=== PATIENT | male | born 1950 | race Caucasian/White ===

== ENCOUNTER 2018-09-13 09:35 | Outpatient (REF) | payer MEDICARE, SELFPAY | END 2018-09-13 09:55 | LOC: NCHCN 09:35 | PROVIDERS: PCP Family Medicine; Visit Provider Family Medicine | DX: I10 Essential (primary) hypertension (principal); Z11.59 Encounter for screening for other viral diseases; E11.9 Type 2 diabetes mellitus without complications ==

== ENCOUNTER 2018-09-13 09:47 | Outpatient (REF) | payer MEDICARE, SELFPAY ==
[2018-09-13 16:22] LABS: Anion Gap 9.2 mmol/L (3-11); BUN 20 mg/dL (7-18); CO2 30.8 mmol/L (21.0-32.0); CREATININE 0.74 mg/dL (0.70-1.30); Calcium 9.4 mg/dL (8.5-10.1); Chloride 100 mmol/L (98-107); Glucose 119 mg/dL (70-100); Potassium 4.4 mmol/L (3.5-5.1); Sodium 140 mmol/L (136-145)
[2018-09-13 16:26] LABS: COMMENT (LAB VIEW ONLY) 142.85 mg/dL; Microalb ug/mg Crea 6.4 ug/mg Cr
[2018-09-14 09:51] LABS: Hepatitis C Ab w Rflx HCV PCR Negative (NEGAT)
== END 2018-09-13 10:07 ==
LOC: NCHCN 09:47
PROVIDERS: PCP Family Medicine; Visit Provider Family Medicine
DX: E11.9 Type 2 diabetes mellitus without complications (principal)
CPT/HCPCS: 80048; 86803; 82043; 82570

== ENCOUNTER 2018-10-07 12:28 | Outpatient (REF) | payer MEDICARE, SELFPAY ==
--- NOTE | 2018-10-07 08:30 | SOFT_PTH ---
PATIENT: Jhon Che LOC: [facility] U#:[id number] AGE/SX: 68/M ROOM: RE10/07/[address]: Jake Schneider MD : [id number] BED: DIS: 10/07/2018 SPEC #: [id number] RECD: 10/07/18 12:38 STATUS: AHMET REQ #: [id number] KASH: 10/07/18 08:[address]: Jake Schneider DEPT: Surgical Specimen RECD BY: Josefina Dodd ENTERED: 10/07/18 12:39 SP TYPE: SOFT OTHR DR: Isaias Denney Tissues: 1 - SOFT TISSUE MISC (INC. LIPOMA) Procedures: GROSS AND MICRO LEVEL 5 Comments: [id number]
== END 2018-10-07 12:48 ==
LOC: LBN 12:28
PROVIDERS: PCP Family Medicine; Visit Provider Otolaryngology
DX: D17.0 Benign lipomatous neoplasm of skin and subcutaneous tissue of head, face and neck (principal)
CPT/HCPCS: 88304; 88307

== ENCOUNTER 2019-09-12 13:02 | Outpatient (REF) | payer OTHER, SELFPAY ==
[2019-09-12 19:18] LABS: Anion Gap 7.7 mmol/L (3-11); BUN 20 mg/dL (7-18); CO2 32.3 mmol/L (21.0-32.0); CREATININE 0.75 mg/dL (0.70-1.30); Calcium 9.5 mg/dL (8.5-10.1); Chloride 101 mmol/L (98-107); Glucose 108 mg/dL (70-100); Sodium 141 mmol/L (136-145)
== END 2019-09-12 13:22 ==
LOC: NCHCN 13:02
PROVIDERS: PCP Family Medicine; Visit Provider Family Medicine
DX: E11.9 Type 2 diabetes mellitus without complications (principal)
CPT/HCPCS: 80048

== ENCOUNTER 2021-02-25 20:13 | Outpatient (REF) | payer OTHER, SELFPAY ==
[2021-02-25 16:11] LABS: Anion Gap 6.2 mmol/L (3-11); BUN 19 mg/dL (7-18); CO2 30.8 mmol/L (21.0-32.0); CREATININE 0.8 mg/dL (0.70-1.30); Calcium 9.4 mg/dL (8.5-10.1); Calculated LDL 86 mg/dL (<100); Chloride 103 mmol/L (98-107); Cholesterol 158 mg/dL (<200); Glucose 122 mg/dL (74-106); HDL Cholesterol 58 mg/dL (40-60); Potassium 4.7 mmol/L (3.5-5.1); Sodium 140 mmol/L (136-145); Triglyceride 72 mg/dL (<150)
== END 2021-02-25 20:14 | disposition home or self-care (01) ==
LOC: NCHCN 20:13
PROVIDERS: PCP Family Medicine; Visit Provider Family Medicine
DX: E11.9 Type 2 diabetes mellitus without complications (principal); I10 Essential (primary) hypertension
CPT/HCPCS: 80048; 80061

== ENCOUNTER 2022-02-18 14:47 | Outpatient (REF) | payer MEDICARE, SELFPAY ==
[2022-02-18 17:08] LABS: Anion Gap 7.6 mmol/L (3-11); BUN 19 mg/dL (7-18); CO2 32.4 mmol/L (21.0-32.0); CREATININE 0.9 mg/dL (0.70-1.30); Calcium 9.5 mg/dL (8.5-10.1); Chloride 102 mmol/L (98-107); Glucose 131 mg/dL (74-106); Potassium 4.7 mmol/L (3.5-5.1); Sodium 142 mmol/L (136-145)
== END 2022-02-18 14:48 | disposition home or self-care (01) ==
LOC: NCHCN 14:47
PROVIDERS: PCP Family Medicine; Visit Provider Family Medicine
DX: I10 Essential (primary) hypertension (principal)
CPT/HCPCS: 80048

== ENCOUNTER 2022-02-18 20:05 | Outpatient (REF) | payer MEDICARE, SELFPAY | END 2022-02-18 20:06 | disposition home or self-care (01) | LOC: NCHCN 20:05 | PROVIDERS: PCP Family Medicine; Visit Provider Family Medicine ==

== ENCOUNTER 2023-03-17 12:45 | Outpatient (REF) | payer MEDICARE, SELFPAY ==
[2023-03-17 15:44] LABS: Anion Gap 7.3 mmol/L (3-11); BUN 17 mg/dL (7-18); CO2 30.7 mmol/L (21.0-32.0); CREATININE 0.9 mg/dL (0.70-1.30); Calcium 9.8 mg/dL (8.5-10.1); Chloride 105 mmol/L (98-107); Estimated GFR 90.74 (mL/min/1.73m2); Glucose 129 mg/dL (74-106); Potassium 4.6 mmol/L (3.5-5.1); Sodium 143 mmol/L (136-145)
== END 2023-03-17 12:46 | disposition home or self-care (01) ==
LOC: NCHCN 12:45
PROVIDERS: PCP Family Medicine; Visit Provider Family Medicine
DX: I10 Essential (primary) hypertension (principal)
CPT/HCPCS: 80048

== ENCOUNTER 2024-03-28 11:25 | Outpatient (REF) | payer MEDICARE, SELFPAY ==
[2024-03-28 15:45] LABS: Abs Immature Grans 0.01 10^3/uL (0.0-0.06); Absolute Basophil Count 0.02 10^3/uL (0.0-0.2); Absolute Eosinophil Count 0.08 10^3/uL (0.0-0.7); Absolute Lymphocyte Count 1.08 10^3/uL (1.2-3.4); Absolute Monocyte Count 0.63 10^3/uL (0.1-0.8); Basophils % 0.3 %; Eosinophils % 1.3 %; HCT 43.4 % (40.0-50.0); Immature Grans % 0.2 %; Lymphocytes % 17.6 %; MCH 30.1 pg (27.0-33.0); MCHC 32.3 % (32.0-36.0); MCV 93 fL (80-95); MPV 10.2 fL (8.0-11.0); Monocytes % 10.3 %; Neutrophils % 70.3 %; Platelet Count 250 10^3/uL (130-400); RBC 4.65 10^6/uL (4.36-5.78); RDW 13.2 % (11.8-14.1); RDW-SD 45.2 fL; WBC 6.12 10^3/uL (4.4-10.8)
[2024-03-28 16:32] LABS: ALT 26 U/L (16-63); AST 14 U/L (15-37); Albumin 4.1 g/dL (3.4-5.0); Alkaline Phosphatase 105 U/L (46-116); Anion Gap 10.2 mmol/L (3-11); BUN 19 mg/dL (7-18); Bilirubin, Total 0.5 mg/dL (0.2-1.0); CO2 29.8 mmol/L (21.0-32.0); CREATININE 0.9 mg/dL (0.70-1.30); Calcium 9.6 mg/dL (8.5-10.1); Calculated LDL 86 mg/dL (<100); Chloride 105 mmol/L (98-107); Cholesterol 161 mg/dL (<200); Estimated GFR 90.18 (mL/min/1.73m2); Glucose 130 mg/dL (74-106); HDL Cholesterol 61 mg/dL (40-60); Sodium 145 mmol/L (136-145); TSH 1.83 uIU/Ml (0.36-3.74); Total Protein 7.1 g/dL (6.4-8.2); Triglyceride 70 mg/dL (<150)
== END 2024-03-28 11:26 | disposition home or self-care (01) ==
LOC: NCHCN 11:25
PROVIDERS: PCP Family Medicine; Visit Provider Student in an Organized Health Care Education/Training Program
DX: E11.9 Type 2 diabetes mellitus without complications (principal)
CPT/HCPCS: 80053; 80061; 84443; 85025

== ENCOUNTER 2024-09-28 10:49 | Outpatient (CLI) | payer MEDICARE, SELFPAY ==
[2024-09-28 10:59] LABS: Abs Immature Grans 0.03 10^3/uL (0.0-0.06); Absolute Basophil Count 0.03 10^3/uL (0.0-0.2); Absolute Eosinophil Count 0.07 10^3/uL (0.0-0.7); Absolute Lymphocyte Count 1.13 10^3/uL (1.2-3.4); Absolute Monocyte Count 0.63 10^3/uL (0.1-0.8); Basophils % 0.4 %; HCT 42.7 % (40.0-50.0); HGB 13.8 g/dL (13.5-17.5); Immature Grans % 0.4 %; Lymphocytes % 16.9 %; MCH 30.3 pg (27.0-33.0); MCHC 32.3 % (32.0-36.0); MCV 94 fL (80-95); MPV 9.4 fL (8.0-11.0); Monocytes % 9.4 %; Neutrophils % 71.9 %; Platelet Count 232 10^3/uL (130-400); RBC 4.56 10^6/uL (4.36-5.78); RDW 13.8 % (11.8-14.1); RDW-SD 46.3 fL; WBC 6.69 10^3/uL (4.4-10.8)
== END 2024-09-28 10:50 | disposition home or self-care (01) ==
LOC: LBO 10:49
PROVIDERS: PCP Family Medicine; Visit Provider Student in an Organized Health Care Education/Training Program
DX: I10 Essential (primary) hypertension (principal); R94.31 Abnormal electrocardiogram [ECG] [EKG]
CPT/HCPCS: 36415; 85025

== ENCOUNTER 2024-09-28 10:51 | Outpatient (CLI) | payer MEDICARE, SELFPAY ==
--- NOTE | 2024-09-28 | DI.RAD_ITS ---
Exam(s) XR CHEST 2V PA LATERAL EXAM: XR CHEST 2V PA LATERAL CLINICAL HISTORY: acute COUGH,WORSE LAYING DOWN,ABNL EKG, R94.31 TECHNIQUE: 2D digital imaging was performed of the chest. Two images were obtained. PA and lateral views were obtained. COMPARISON: No exams were available for comparison FINDINGS: MEDIASTINUM: Normal. HEART: Normal. PULMONARY VASCULATURE: Normal. LUNGS: There is atelectasis in the left lung base. No focal consolidating infiltrates are seen. PLEURAL SPACE: No pleural effusion or pneumothorax. BONE:Within normal limits for the patient's age. OTHER FINDINGS:Normal. IMPRESSION: No acute pulmonary findings. DATA REPOSITORY: RADIATION DOSE DELIVERED:
== END 2024-09-28 11:11 ==
PROVIDERS: PCP Family Medicine; Visit Provider Student in an Organized Health Care Education/Training Program
DX: R94.31 Abnormal electrocardiogram [ECG] [EKG] (principal)
CPT/HCPCS: 71046

== ENCOUNTER 2024-09-29 02:43 | Outpatient (CLI) | payer MEDICARE, SELFPAY ==
--- NOTE | 2024-09-29 | DI.US_ITS ---
APPROVED REPORT EXAM: Comprehensive 2D, Doppler, and color-flow Echocardiogram Patient Location: Out-Patient Order Puller: Nadira Moreau RDCS (AE) Indications: Abnormal EKG, New chronic cough Other Information Study Quality: Adequate Conclusion Normal left ventricular wall thickness and chamber size. Ejection fraction is 50 to 55%. There are no segmental wall motion abnormalities Normal right ventricular size and function Both atria are normal in size Mildly thickened mitral leaflets with mild regurgitation Estimated right ventricular systolic pressure is 37 mmHg Wall motion Left Ventricle The left ventricle is normal size. Left ventricular systolic function is borderline. There is normal left ventricular wall thickness. No segmental wall motion abnormalities There is no ventricular septa l defect visualized. LVEF is 50 to 55% Right Ventricle The right ventricle is normal size. The right ventricular systolic function is normal. Atria The left atrium size is normal. The right atrium size is normal. The interatrial septum is intact wit h no evidence for an atrial septal defect. Aortic Valve The aortic valve is normal in structure. Aortic valve is trileaflet. There is no aortic valvular sten osis. No aortic regurgitation is present. Mitral Valve Mitral valve leaflets are mildly thickened. No evidence of mitral valve stenosis. Mild mitral regurg itation. Tricuspid Valve The tricuspid valve is normal in structure. There is no tricuspid valve stenosis. Trace tricuspid reg urgitation. The RVSP is 37.3 mmHg. Pulmonic Valve The pulmonary valve is normal in structure. There is no pulmonic valvular stenosis. Trace pulmonic re gurgitation. Great Vessels The aortic root is normal in size. The ascending aorta is normal in size. Aortic arch is not well vis ualized. IVC is normal in size and collapses >50% with inspiration. Pericardium There is no pericardial effusion. 2D Dimensions IVSD d PLAX 0.75 cm M: 0.6-1.2 Ao Root d 2.89 cm M: 3.1 - 3.7 LVPW d PLAX 0.73 cm M: 0.6 - 1.2 Ao Asc Diam d 3.30 cm M: 2.6 - 3.4 LVID d PLAX 5.42 cm M: 4.2 - 5.8 LVDs 4.06 cm M: 2.5 - 4.0 LV EF Teichholz 49.1 % FS 25.08 % LV EDV (Teich) 142.3 mL LV ESV (Teich) 72.5 mL M-Mode TAPSE 2.75 cm (M/F) >1.7 Auto EF LV EDV A4C 145.2 mL LV EDV A2C 124.7 mL LV EDV BP 135.1 mL LV ESV A4C 73.7 mL LV ESV A2C 65.1 mL LV ESV BP 70.4 mL LVEF(%) A4C 49.2 % LVEF(%) A2C 47.8 % LVEF(%) BP 47.9 % LV SV A4C 71.5 ml LV SV A2C 59.6 ml LV SV BP 64.7 ml LV CO A4C 4.6 L/min LV CO A2C 3.9 L/min LV CO BP 4.3 L/min HR A4C 64.87 BPM HR A2C 65.22 BPM LV EDV Index (BP) LA Volume LA Length A4C 5.6 cm LA Length A2C 5.9 cm LA Area A4C s 20.39 cm2 LA Area A2C s 20.56 cm2 LA Vol A4C A-L 62.70 mL LA Vol A2C A-L 61.28 mL LA Vol Biplane A-L 63.2 mL LA Vol/BSA A4C A-L LA Vol/BSA A2C A-L LA Vol/BSA BP A-L 32.6 mL/m2 LA Vol A4C MOD 59.6 mL LA Vol A2C MOD 59.2 mL LA Vol BP MOD 60.4 mL RA Volume RA Area A4C 11.6 cm2 RA ESV A4C (A-L) 24.6mL RA Vol/BSA A4C A-L RA Length A4C 4.6 cm RA ESV A4C (MOD) 23.9mL LV Diastology MV E' medial 0.077 (>0.07 m/s) MV E Vmax 0.88 (0.4-1.3 m/s) MV E/E' MED 11.34 (<14) MV A Vmax 0.95 (0.4-1.3 m/s) MV E' lateral 0.118 (>0.1 m/s) E/A Ratio 0.9 MV E/E' LAT 7.44 (<14) MV E' Average 0.098 m/s MV E/E'(average) 8.98 Aortic Valve AoV Vmax 1.62 m/s LVOT Vmax 1.28 m/s AoV Peak Grad 10.5 mmHg LVOT Peak Grad 6.5 mmHg AoV Area (Vmax) 2.44 cm2 LVOT VTI 0.337 m AoV VTI 0.381 m LVOT Mean Grad 4.5 mmHg AoV Mean Tab. 1.14 m/s LVOT SV 103.77 mL AoV Mean Grad 5.9 mmHg LVOT Diam s 1.95 cm AoV Area (VTI) 2.73 cm2 AV Regurg Peak Gr. 10.47 mmHg Velocity Ratio 0.79 Mitral Valve MV DT 187 (160-240 msec) MV Vmax TIPS 1.04 m/s MV Mean Grad 1.7 (<2mmHg) MV VTI 0.338 m Pulmonary Valve PV Vmax 1.09 (0.5-1.5 m/s) RVOT Vmax 0.87 m/s PV Peak Grad 4.7 mmHg RVOT Peak Gr. 3.0 mmHg PV Mean Tab 0.75 m/s RVOT VTI 0.205 m PV Mean Grad 2.6 mmHg RVOT Mean Gr. 1.6 mmHg Tricuspid Valve RA Pressure 3.00 mmHg TR Vmax 2.93 m/s TV S' 0.15 m/s TR Peak Grad 34.3 mmHg RVSP (TR) 37.3 mmHg
== END 2024-09-29 03:03 ==
LOC: DI 02:43
PROVIDERS: PCP Family Medicine; Visit Provider Student in an Organized Health Care Education/Training Program
DX: R94.31 Abnormal electrocardiogram [ECG] [EKG] (principal); R05.3 Chronic cough; I35.0 Nonrheumatic aortic (valve) stenosis
CPT/HCPCS: 93306

== ENCOUNTER 2024-10-14 08:37 | Outpatient (RCR) | payer MEDICARE, SELFPAY ==
--- NOTE | 2024-10-14 08:45 | RT.EKG_ITS ---
APPROVED REPORT Exam: Resting ECG Reason for Exam: IRREGULAR HEARTBEAT Patient Location: O HR:75 bpm ECG Measurements Heart Rate 75 AXIS AL 148 P 41 QRSd 96 QRS -47 QT 411 T 71 QTc 460 Conclusion Sinus rhythm...normal P axis, V-rate 50- 99 Atrial premature complex...SV complex w/ short R-R interval Left anterior fascicular block Borderline low voltage, extremity leads...all extremity leads <0.6mV
== END 2024-10-22 23:59 | disposition home or self-care (01) ==
LOC: CARDOPNVT 08:37
PROVIDERS: PCP Family Medicine; Visit Provider Internal Medicine Cardiovascular Disease
DX: R00.2 Palpitations (principal)
CPT/HCPCS: 93227; 93225; 93226

== ENCOUNTER 2025-03-07 12:08 | Outpatient (REF) | payer MEDICARE, SELFPAY ==
[2025-03-07 17:19] LABS: COMMENT (LAB VIEW ONLY) 100.77 mg/dL; Microalb ug/mg Crea 14.4 ug/mg Cr
== END 2025-03-07 12:09 | disposition home or self-care (01) ==
LOC: NCHCN 12:08
PROVIDERS: PCP Student in an Organized Health Care Education/Training Program; Visit Provider Student in an Organized Health Care Education/Training Program
DX: E11.9 Type 2 diabetes mellitus without complications (principal)
CPT/HCPCS: 82043; 82570

== ENCOUNTER 2025-03-29 10:33 | Outpatient (REF) | payer MEDICARE, SELFPAY ==
[2025-03-29 16:36] LABS: Anion Gap 4.4 mmol/L (3-11); BUN 23 mg/dL (7-18); CO2 31.6 mmol/L (21.0-32.0); Calcium 9.4 mg/dL (8.5-10.1); Chloride 104 mmol/L (98-107); Estimated GFR 78.98 (mL/min/1.73m2); Glucose 127 mg/dL (74-106); Sodium 140 mmol/L (136-145)
== END 2025-03-29 10:34 | disposition home or self-care (01) ==
LOC: NCHCN 10:33
PROVIDERS: PCP Student in an Organized Health Care Education/Training Program; Visit Provider Student in an Organized Health Care Education/Training Program
DX: I10 Essential (primary) hypertension (principal)
CPT/HCPCS: 80048

== ENCOUNTER 2025-08-29 09:25 | Outpatient (REF) | payer MEDICARE, SELFPAY ==
[2025-08-29 15:45] LABS: Anion Gap 8.3 mmol/L (3-11); BUN 21 mg/dL (7-18); CO2 30.7 mmol/L (21.0-32.0); Calcium 9.2 mg/dL (8.5-10.1); Chloride 103 mmol/L (98-107); Estimated GFR 78.49 (mL/min/1.73m2); Glucose 127 mg/dL (74-106); Hemoglobin A1C 6.0 % (<5.7); Potassium 4.9 mmol/L (3.5-5.1); Sodium 142 mmol/L (136-145)
[2025-08-29 16:32] LABS: COMMENT (LAB VIEW ONLY) 140.13 mg/dL; Microalb ug/mg Crea 7.6 ug/mg Cr
== END 2025-08-29 09:26 | disposition home or self-care (01) ==
LOC: NCHCN 09:25
PROVIDERS: PCP Student in an Organized Health Care Education/Training Program; Visit Provider Student in an Organized Health Care Education/Training Program
DX: E11.9 Type 2 diabetes mellitus without complications (principal); I10 Essential (primary) hypertension
CPT/HCPCS: 80048; 82043; 82570; 83036